=== PATIENT | female | born 1985 | race Asian ===

== ENCOUNTER 2025-02-25 11:18 | Outpatient (CLI) | payer BC, OTHER | END 2025-02-25 11:19 | disposition home or self-care (01) | LOC: CSHMAMMO 11:18 | PROVIDERS: ATTEND Student in an Organized Health Care Education/Training Program | DX: Z12.31 Encounter for screening mammogram for malignant neoplasm of breast (principal); Z80.3 Family history of malignant neoplasm of breast | CPT/HCPCS: 77063; 77067 ==